=== PATIENT | female | born 1945 | race Caucasian/White ===

== ENCOUNTER 2016-04-27 17:41 | Emergency (ER) | payer OTHER ==
[~2016-04-27] VITALS: Ht 165.1 cm; Wt 97.1 kg
[~2016-04-27 17:41] MED LIST: ASPIR-LOW81 MG PO; ATORVASTATIN CA40 MG PO; AUGMENTIN875 MG PO; BACTRIM,SEPT1 TABLET PO; CARBIDOPA-LEVO1 EAC8 PO; CARBIDOPA/LEVO1 EACH PO; CARDIZEM CD,CA180 MG PO; CEFTIN500 MG PO; CICLODAN90 GM TP; CIPRO500 MG PO; CIPROFLOXACIN500 M1 PO; COL-RITE100 M1 PO; DILTIAZEM 24HR180 MG PO; ELDEPRYL5 MG PO; ENDOCET 5-3251 EACH PO; FERGON324 MG PO; FERROUS GLUCON324 MG PO; FLAGYL500 MG PO; FLEXERIL10 MG PO; FLUCONAZOLE100 MG PO; HUMULIN R100 UNITS/ SC; HYZAAR 100-21 TABLET PO; K-DUR20 MEQ PO; LANTUS 10100 UNITS/ SC; LANTUS 3 M100 UNITS1 SC; LASIX40 MG PO; LEVOTHYROXINE50 MCG PO; LEVOTHYROXINE75 MCG PO; LIDODERM 5% P1 PATCH TD; LO-DOSE ASPIRIN81 M1 PO; LOPRESSOR50 MG PO; LOSARTAN POTASS50 MG PO; LYRICA100 MG PO; LYRICA50 MG PO; LYRICA75 MG PO; METOPROLOL TART50 MG PO; MOTRIN600 MG PO; MUPIROCIN1 GM TP; NOVOLIN,HU100 UNITS/ SC; NOVOLIN,HU100 UNITS1 SC; NYSTATIN15 GM TP; OMEPRAZOLE40 M1 PO; PAROEX473 ML MM; PERCOCET 5/31 TABLET PO; POTASSIUM CHLO10 ME3 PO; PRILOSEC40 MG PO; SEA SOFT45 ML BOTH NARES; SELEGILINE HCL5 M1 PO; SERTRALINE HCL50 MG PO; SINEMET 25-1001 EACH PO; SORE THROAT MM; SYSTANE ULTRA 015 ML BOTH EYES; TOPROL XL50 MG PO; TRIPLE ANTIB28.35 GM TP; TYLENOL REGULA325 MG PO; XANAX0.5 MG PO; XARELTO15 MG PO; XARELTO20 MG PO; ZOLOFT50 MG PO
[2016-04-27 18:52] LABS: HEMATOCRIT 38.5 % (36.0-46.0); MCH 27.9 PG (29.0-34.0); MCHC 32.7 G/DL (30.0-36.0); MCV 85.4 FL (83-99); MEAN PLAT.VOLUME 11.1 uM^3 (9.5-12.4); PLATELET COUNT 178 K/uL (156-360); RBC DIS.WIDTH-CV 14.4 % (11.8-14.6); RBC DIS.WIDTH-SD 44.2 % (39-53); RED BLOOD COUNT 4.51 M/uL (3.80-5.20); WHITE BLOOD COUNT 10.6 K/uL (4.1-10.2)
[2016-04-27 19:13] LABS: CHLORIDE 106 mEq/L (99-109)
[2016-04-27 19:14] LABS: POTASSIUM 3.8 mEq/L (3.7-5.4); SODIUM 139 mEq/L (136-147)
[2016-04-27 19:15] LABS: GLUCOSE 118 mg/dL (70-99)
[2016-04-27 19:17] LABS: ANION GAP 12 MEQ/L (2-14)
[2016-04-27 19:19] LABS: GFR ESTIMATE (CALCULATED) 47 mL/min/
[2016-04-27 19:20] LABS: UREA NITROGEN (BUN) 27 mg/dL (9-23)
[2016-04-27 19:34] LABS: ADD MIUA? YES; BILIRUBIN NEGATIVE; BLOOD NEGATIVE; COLOR YELLOW ((YELLOW)); GLUCOSE (STRIP) NEGATIVE; KETONES NEGATIVE; LEUKOCYTES SMALL; NITRITE POSITIVE; PROTEIN (STRIP) NEGATIVE; SPECIFIC GRAVITY 1.016 (1.000-1.030); UROBILINOGEN 0.2 MG/DL (0.2-1.0)
[2016-04-27] MEDS ORDERED: NOVOLIN,HU100 UNITS1 SC (19:54)
[2016-04-27 20:40] LABS: BACTERIA 4+; CASTS NONE SEEN /LPF; CRYSTALS NONE SEEN; EPITHELIAL CELLS NONE SEEN; MUCUS NONE SEEN; RED BLOOD CELLS 0-5 /HPF (0-5); UCUL ADDED? YES
[2016-04-27] MEDS ORDERED: KEFLEX500 MG PO (20:53)
[2016-04-27 23:45] VITALS: BP 126/52
== END 2016-04-27 23:45 | disposition home or self-care (01) ==
LOC: EME 17:41
PROVIDERS: Emergency Medicine
DX: N39.0 Urinary tract infection, site not specified (principal); G20 Parkinson's disease; R29.6 Repeated falls; G89.29 Other chronic pain; I10 Essential (primary) hypertension; E11.9 Type 2 diabetes mellitus without complications; Z79.4 Long term (current) use of insulin; Z79.82 Long term (current) use of aspirin
CPT/HCPCS: 70450; 71010; 71020; 80048; 81003; 83605; 85027; 87077; 87086 GA; 87186; 99281; 99285; J0696; J7030; J7050

== ENCOUNTER 2016-05-05 10:30 | Emergency (ER) | payer OTHER ==
[~2016-05-05] VITALS: Ht 167.6 cm; Wt 104.8 kg
[~2016-05-05 10:30] MED LIST changes: +KEFLEX500 MG PO
[2016-05-05 11:16] LABS: ADD MIUA? NO; BILIRUBIN NEGATIVE; BLOOD NEGATIVE; COLOR YELLOW ((YELLOW)); GLUCOSE (STRIP) NEGATIVE; KETONES NEGATIVE; LEUKOCYTES NEGATIVE; NITRITE NEGATIVE; PROTEIN (STRIP) NEGATIVE; SPECIFIC GRAVITY 1.019 (1.000-1.030); UCUL ADDED? NO; UROBILINOGEN 0.2 MG/DL (0.2-1.0)
[2016-05-05 11:45] LABS: HEMATOCRIT 39.5 % (36.0-46.0); MCH 28.1 PG (29.0-34.0); MCHC 31.9 G/DL (30.0-36.0); MEAN PLAT.VOLUME 11.3 uM^3 (9.5-12.4); PLATELET COUNT 168 K/uL (156-360); RBC DIS.WIDTH-CV 14.8 % (11.8-14.6); RBC DIS.WIDTH-SD 46.7 % (39-53); RED BLOOD COUNT 4.49 M/uL (3.80-5.20); WHITE BLOOD COUNT 12.6 K/uL (4.1-10.2)
[2016-05-05 11:52] LABS: EOSINOPHIL (%) 5.9 % (0-5); EOSINOPHIL COUNT 0.7 K/uL (0-0.3); IMMATURE GRANULOCYTE (%) 0.2 % (0.0-0.7); IMMATURE GRANULOCYTE COUNT 0.3 K/uL; LYMPHOCYTE COUNT 1.5 K/uL (1.0-2.8); MONOCYTE (%) 5.6 % (3-12); MONOCYTE COUNT 0.7 K/uL (0-0.8); NEUTROPHIL (%) 76.6 % (45-76); NEUTROPHIL COUNT 9.7 K/uL (1.8-6.4)
[2016-05-05 11:57] LABS: INTER. NORMALIZED RATIO 1.4; PROTHROMBIN TIME 14.5 (9.2-11.2); PTT 36.9 (25-32)
[2016-05-05 12:04] LABS: CHLORIDE 106 mEq/L (99-109); POTASSIUM 4.3 mEq/L (3.7-5.4); SODIUM 139 mEq/L (136-147)
[2016-05-05 12:05] LABS: MAGNESIUM 1.7 mg/dL (1.3-2.7)
[2016-05-05 12:06] LABS: GLUCOSE 238 mg/dL (70-99)
[2016-05-05 12:07] LABS: TROP-I INTERPRETATION NEGATIVE; TROPONIN-I < 0.01 ng/mL (0.0-0.30)
[2016-05-05 12:08] LABS: ANION GAP 9 MEQ/L (2-14)
[2016-05-05 12:10] LABS: GFR ESTIMATE (CALCULATED) 58 mL/min/
[2016-05-05 12:11] LABS: UREA NITROGEN (BUN) 30 mg/dL (9-23)
[2016-05-05 14:25] VITALS: BP 130/69
== END 2016-05-05 15:00 | disposition home or self-care (01) ==
LOC: EME 10:30
PROVIDERS: Emergency Medicine
DX: S60.211A Contusion of right wrist, initial encounter (principal); S09.90XA Unspecified injury of head, initial encounter; S29.9XXA Unspecified injury of thorax, initial encounter; W19.XXXA Unspecified fall, initial encounter; Z91.81 History of falling; G20 Parkinson's disease; E11.9 Type 2 diabetes mellitus without complications; I10 Essential (primary) hypertension; K21.9 Gastro-esophageal reflux disease without esophagitis; Z85.3 Personal history of malignant neoplasm of breast; Z90.12 Acquired absence of left breast and nipple; Z79.4 Long term (current) use of insulin; Z79.82 Long term (current) use of aspirin
CPT/HCPCS: 70450; 71010; 80048; 81003; 83605; 83735; 84484; 85025; 85610; 85730; 87040; 93005; 99281; 99285; J7030

== ENCOUNTER 2016-07-15 12:41 | Inpatient (IN) | payer OTHER ==
[~2016-07-15] VITALS: Ht 165.1 cm; Wt 100.2 kg
[2016-07-15 14:44] LABS: HEMATOCRIT 42.3 % (36.0-46.0); MCH 27.4 PG (29.0-34.0); MCHC 32.2 G/DL (30.0-36.0); MCV 85.3 FL (83-99); MEAN PLAT.VOLUME 11.4 uM^3 (9.5-12.4); PLATELET COUNT 218 K/uL (156-360); RBC DIS.WIDTH-CV 13.5 % (11.8-14.6); RBC DIS.WIDTH-SD 42.4 % (39-53); RED BLOOD COUNT 4.96 M/uL (3.80-5.20)
[2016-07-15 14:58] LABS: CHLORIDE 105 mEq/L (99-109); POTASSIUM 3.9 mEq/L (3.7-5.4); SODIUM 142 mEq/L (136-147)
[2016-07-15 15:00] LABS: GLUCOSE 83 mg/dL (70-99)
[2016-07-15 15:01] LABS: ANION GAP 13 MEQ/L (2-14)
[2016-07-15 15:03] LABS: GFR ESTIMATE (CALCULATED) > 59 mL/min/
[2016-07-15 15:04] LABS: UREA NITROGEN (BUN) 26 mg/dL (9-23)
[2016-07-15 15:07] LABS: TROP-I INTERPRETATION NEGATIVE; TROPONIN-I < 0.01 ng/mL (0.0-0.30)
[2016-07-15] MEDS ORDERED: CYANOCOBAL1000 MCG/2 IM (19:49)
[2016-07-15] MEDS ORDERED: HUMULIN R100 UNITS/ SC (20:11)
[2016-07-15] MEDS ORDERED: K-DUR20 MEQ PO (20:12)
[2016-07-15 22:08] VITALS: BP 224/95
[2016-07-16] VITALS: BP 167/79
[2016-07-16 06:39] LABS: HEMATOCRIT 44.9 % (36.0-46.0); MCH 27.4 PG (29.0-34.0); MCHC 32.3 G/DL (30.0-36.0); MCV 84.9 FL (83-99); MEAN PLAT.VOLUME 12.1 uM^3 (9.5-12.4); PLATELET COUNT 254 K/uL (156-360); RBC DIS.WIDTH-CV 13.6 % (11.8-14.6); RBC DIS.WIDTH-SD 42.1 % (39-53); RED BLOOD COUNT 5.29 M/uL (3.80-5.20); WHITE BLOOD COUNT 9.1 K/uL (4.1-10.2)
[2016-07-16 07:09] LABS: ANION GAP 15 MEQ/L (2-14); CHLORIDE 98 MEQ/L (99-109); GFR ESTIMATE (CALCULATED) 58 mL/min/; POTASSIUM 4.3 MEQ/L (3.7-5.4); SAMPLE HEMOLYSIS CHECK 0; SAMPLE ICTERIC CHECK 0; SAMPLE LIPEMIA CHECK 0; SODIUM 137 MEQ/L (136-147); UREA NITROGEN (BUN) 31 mg/dL (9-23)
[2016-07-16 07:15] LABS: GLUCOSE 303 mg/dL (70-99)
[2016-07-16 08:48] VITALS: BP 164/77
[2016-07-16 17:46] VITALS: BP 176/81
[2016-07-16 18:45] VITALS: BP 178/81
[2016-07-16 23:03] VITALS: BP 178/92
[2016-07-17 03:08] VITALS: BP 147/71
[2016-07-17 05:45] LABS: POINT-OF-CARE METER ID UU13113725
[2016-07-17 06:37] LABS: EOSINOPHIL (%) 0 % (0-5); HEMATOCRIT 39.8 % (36.0-46.0); IMMATURE GRANULOCYTE (%) 0.7 % (0.0-0.7); IMMATURE GRANULOCYTE COUNT 0.1 K/uL; INSTRUMENT ABS NEUTROPHIL CT 5.7 K/uL; LYMPHOCYTE COUNT 0.7 K/uL (1.0-2.8); MCH 27.9 PG (29.0-34.0); MCHC 33.4 G/DL (30.0-36.0); MCV 83.6 FL (83-99); MEAN PLAT.VOLUME 12.2 uM^3 (9.5-12.4); MONOCYTE (%) 4.9 % (3-12); MONOCYTE COUNT 0.3 K/uL (0-0.8); NEUTROPHIL (%) 83.6 % (45-76); NEUTROPHIL COUNT 5.7 K/uL (1.8-6.4); PLATELET COUNT 209 K/uL (156-360); RBC DIS.WIDTH-CV 13.4 % (11.8-14.6); RBC DIS.WIDTH-SD 41.2 % (39-53); RED BLOOD COUNT 4.76 M/uL (3.80-5.20); WHITE BLOOD COUNT 6.8 K/uL (4.1-10.2)
[2016-07-17 07:21] LABS: ALKALINE PHOSPHATASE 140 IU/L (3-129); ANION GAP 10 MEQ/L (2-14); CHLORIDE 97 MEQ/L (99-109); GFR ESTIMATE (CALCULATED) 58 mL/min/; GLUCOSE 374 mg/dL (70-99); POTASSIUM 4.4 MEQ/L (3.7-5.4); SAMPLE HEMOLYSIS CHECK 0; SAMPLE ICTERIC CHECK 0; SAMPLE LIPEMIA CHECK 0; SODIUM 133 MEQ/L (136-147); TOTAL BILIRUBIN 0.4 MG/DL (0.0-1.0); UREA NITROGEN (BUN) 39 mg/dL (9-23)
[2016-07-17 08:30] VITALS: BP 154/86
[2016-07-17 10:36] LABS: POINT-OF-CARE METER ID UU13113725
[2016-07-17 11:09] LABS: POINT-OF-CARE METER ID UU13113725
[2016-07-17 16:33] VITALS: BP 157/72
[2016-07-17 18:49] VITALS: BP 162/81; BP 182/89
[2016-07-17 20:37] LABS: POINT-OF-CARE METER ID UU13113725
[2016-07-17 22:50] VITALS: BP 184/86
[2016-07-18 03:25] VITALS: BP 171/84
[2016-07-18 06:04] LABS: EOSINOPHIL (%) 0 % (0-5); HEMATOCRIT 42.1 % (36.0-46.0); IMMATURE GRANULOCYTE (%) 0.6 % (0.0-0.7); IMMATURE GRANULOCYTE COUNT 0.1 K/uL; INSTRUMENT ABS NEUTROPHIL CT 6.7 K/uL; LYMPHOCYTE COUNT 0.9 K/uL (1.0-2.8); MCH 27.4 PG (29.0-34.0); MEAN PLAT.VOLUME 12.3 uM^3 (9.5-12.4); MONOCYTE (%) 4.8 % (3-12); MONOCYTE COUNT 0.4 K/uL (0-0.8); NEUTROPHIL (%) 83.2 % (45-76); NEUTROPHIL COUNT 6.7 K/uL (1.8-6.4); PLATELET COUNT 175 K/uL (156-360); RBC DIS.WIDTH-CV 13.3 % (11.8-14.6); RBC DIS.WIDTH-SD 40.2 % (39-53); RED BLOOD COUNT 5.07 M/uL (3.80-5.20); WHITE BLOOD COUNT 8.1 K/uL (4.1-10.2)
[2016-07-18 06:36] LABS: ALKALINE PHOSPHATASE 136 IU/L (3-129); ANION GAP 10 MEQ/L (2-14); CHLORIDE 99 MEQ/L (99-109); GFR ESTIMATE (CALCULATED) > 59 mL/min/; GLUCOSE 267 mg/dL (70-99); POTASSIUM 4.2 MEQ/L (3.7-5.4); SAMPLE HEMOLYSIS CHECK 0; SAMPLE ICTERIC CHECK 0; SAMPLE LIPEMIA CHECK 0; SODIUM 134 MEQ/L (136-147); TOTAL BILIRUBIN 0.4 MG/DL (0.0-1.0); UREA NITROGEN (BUN) 36 mg/dL (9-23)
[2016-07-18 07:24] VITALS: BP 186/88
[2016-07-18 11:46] LABS: POINT-OF-CARE METER ID UU13113725
[2016-07-18 11:49] VITALS: BP 140/73
[2016-07-18 15:00] VITALS: BP 170/82
[2016-07-18 22:58] VITALS: BP 159/83
[2016-07-19 06:27] LABS: EOSINOPHIL (%) 0 % (0-5); HEMATOCRIT 46.1 % (36.0-46.0); IMMATURE GRANULOCYTE (%) 0.7 % (0.0-0.7); IMMATURE GRANULOCYTE COUNT 0.1 K/uL; INSTRUMENT ABS NEUTROPHIL CT 5.8 K/uL; LYMPHOCYTE COUNT 0.8 K/uL (1.0-2.8); MCH 27.1 PG (29.0-34.0); MCHC 33.2 G/DL (30.0-36.0); MCV 81.7 FL (83-99); MEAN PLAT.VOLUME 12.6 uM^3 (9.5-12.4); MONOCYTE (%) 6.8 % (3-12); MONOCYTE COUNT 0.5 K/uL (0-0.8); NEUTROPHIL (%) 81.5 % (45-76); NEUTROPHIL COUNT 5.8 K/uL (1.8-6.4); PLATELET COUNT 206 K/uL (156-360); RBC DIS.WIDTH-SD 38.7 % (39-53); RED BLOOD COUNT 5.64 M/uL (3.80-5.20); WHITE BLOOD COUNT 7.1 K/uL (4.1-10.2)
[2016-07-19 06:51] LABS: ANION GAP 11 MEQ/L (2-14); CHLORIDE 96 MEQ/L (99-109); GFR ESTIMATE (CALCULATED) 58 mL/min/; GLUCOSE 328 mg/dL (70-99); POTASSIUM 4.1 MEQ/L (3.7-5.4); SAMPLE HEMOLYSIS CHECK 0; SAMPLE ICTERIC CHECK 0; SAMPLE LIPEMIA CHECK 0; SODIUM 132 MEQ/L (136-147); UREA NITROGEN (BUN) 34 mg/dL (9-23)
[2016-07-19 07:28] LABS: Estimated Average Glucose 240 mg/dL (70-123)
[2016-07-19 07:30] VITALS: BP 190/83
[2016-07-19 11:40] LABS: POINT-OF-CARE METER ID UU13113725
[2016-07-19 11:49] VITALS: BP 187/88
[2016-07-19 16:00] VITALS: BP 184/88
[2016-07-19 16:45] LABS: POINT-OF-CARE METER ID UU13113725
[2016-07-19 23:05] VITALS: BP 147/73
[2016-07-20 05:40] LABS: POINT-OF-CARE METER ID UU13113725
[2016-07-20 06:15] LABS: EOSINOPHIL (%) 0 % (0-5); HEMATOCRIT 44.2 % (36.0-46.0); IMMATURE GRANULOCYTE (%) 0.7 % (0.0-0.7); IMMATURE GRANULOCYTE COUNT 0.1 K/uL; INSTRUMENT ABS NEUTROPHIL CT 5.7 K/uL; LYMPHOCYTE COUNT 0.7 K/uL (1.0-2.8); MCH 27.4 PG (29.0-34.0); MCHC 33.3 G/DL (30.0-36.0); MCV 82.3 FL (83-99); MEAN PLAT.VOLUME 12.2 uM^3 (9.5-12.4); MONOCYTE (%) 7.2 % (3-12); MONOCYTE COUNT 0.5 K/uL (0-0.8); NEUTROPHIL (%) 82.5 % (45-76); NEUTROPHIL COUNT 5.7 K/uL (1.8-6.4); PLATELET COUNT 164 K/uL (156-360); RBC DIS.WIDTH-CV 13.2 % (11.8-14.6); RBC DIS.WIDTH-SD 39.6 % (39-53); RED BLOOD COUNT 5.37 M/uL (3.80-5.20)
[2016-07-20 06:40] LABS: ANION GAP 10 MEQ/L (2-14); CHLORIDE 100 MEQ/L (99-109); GFR ESTIMATE (CALCULATED) > 59 mL/min/; GLUCOSE 278 mg/dL (70-99); POTASSIUM 4.5 MEQ/L (3.7-5.4); SAMPLE HEMOLYSIS CHECK 0; SAMPLE ICTERIC CHECK 0; SAMPLE LIPEMIA CHECK 0; SODIUM 134 MEQ/L (136-147); UREA NITROGEN (BUN) 32 mg/dL (9-23)
[2016-07-20 06:57] VITALS: BP 152/86
[2016-07-20] MEDS ORDERED: DEXAMETHASONE4 MG PO (11:29)
[2016-07-20] MEDS ORDERED: NOVOLOG PE100 UNITS/ SC (11:30)
[2016-07-20] MEDS ORDERED: MORPHINE CON20 MG/M1 PO (11:32)
[2016-07-20] MEDS ORDERED: ATIVAN INTE2 MG/1 ML PO (11:32)
[2016-07-20] MEDS ORDERED: ATROPINE 1100 DROP/5 SL (11:32)
== END 2016-07-20 16:24 | disposition home or self-care (01) | DRG 81 ==
LOC: EME 12:41 → 5EAST 20:19 → EDOF 20:19 → 5EAST 21:13
PROVIDERS: Emergency Medicine; Hospitalist
DX: G93.6 Cerebral edema (principal); G93.89 Other specified disorders of brain; R29.6 Repeated falls; E11.9 Type 2 diabetes mellitus without complications; I48.0 Paroxysmal atrial fibrillation; R27.0 Ataxia, unspecified; G20 Parkinson's disease; W01.198A Fall on same level from slipping, tripping and stumbling with subsequent striking against other object, initial encounter; I10 Essential (primary) hypertension; K21.9 Gastro-esophageal reflux disease without esophagitis; Z91.040 Latex allergy status; Z88.6 Allergy status to analgesic agent; Z91.81 History of falling; E66.01 Morbid (severe) obesity due to excess calories; Z51.5 Encounter for palliative care; E27.9 Disorder of adrenal gland, unspecified; E03.9 Hypothyroidism, unspecified; Z85.3 Personal history of malignant neoplasm of breast
CPT/HCPCS: 70450; 70553; 71010; 71260; 72125; 74177; 77290; 77307; 77331; 77334; 77412; 77417; 80048; 80053; 81003; 82607; 82948; 83036; 84484; 85025; 85027; 93005; 99281; 99285; J1100; J1815; J8540